=== PATIENT | male | born 1965 | race American Indian/Alaskan Native ===

== ENCOUNTER 2016-11-26 12:57 | Emergency (ER) | payer OTHER ==
[2016-11-26] MEDS ORDERED: ZOFRAN ONE (12:58)
[2016-11-26] MEDS ORDERED: KEPPRA 1,000 MG/NS 0.75% 100ML 1,000 MG/100 ML BAG IV ONE ×2 (12:58→13:17)
[2016-11-26] MEDS ORDERED: ZOFRAN IV ONE (13:17)
[2016-11-26 14:02] LABS: Basophils % (Auto) 0.3 % (0.0-1.8); Eosinophils % (Auto) 1.3 % (0.0-4.3); Hemoglobin 14.4 gm/dl (11.8-15.2); Mean Corpuscular HGB Conc 31 % (32-34); Mean Corpuscular Hemoglobin 28 pg (28-32); Mean Corpuscular Volume 88 fl (84-94); Platelet Count 187 K/mm3 (140-440); Red Blood Count 5.25 M/mm3 (3.65-5.03); Red Cell Distribution Width 13.7 % (13.2-15.2); White Blood Count 8.3 K/mm3 (4.5-11.0)
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
[2016-11-26 14:14] LABS: Creatine Kinase MB 5.7 ng/mL (0.0-4.0)
[2016-11-26 14:16] LABS: Alanine Aminotransferase 17 units/L (7-56); Albumin/Globulin Ratio 1.2 %; Alkaline Phosphatase 55 units/L (35-129); Anion Gap 25 mmol/L; BUN/Creatinine Ratio 11.53; Blood Urea Nitrogen 15 mg/dL (9-20); Calcium 9.4 mg/dL (8.4-10.2); Carbon Dioxide 17 mmol/L (22-30); Chloride 103.5 mmol/L (98-107); Creatine Kinase 725 units/L (55-170); Glucose 186 mg/dL (75-100); Potassium 4.6 mmol/L (3.6-5.0); Sodium 141 mmol/L (137-145); Total Protein 7.4 g/dL (6.3-8.2)
[2016-11-26 14:18] LABS: Bilirubin,Direct < 0.2 mg/dL (0-0.2)
[2016-11-26 15:36] LABS: Urine Drugs of Abuse Note Disclamer
[2016-11-26 18:41] VITALS: BP 130/87
== END 2016-11-26 18:42 | disposition home or self-care (01) ==
LOC: ED 12:57
DX: G40.909 Epilepsy, unspecified, not intractable, without status epilepticus (principal); F19.10 Other psychoactive substance abuse, uncomplicated; I10 Essential (primary) hypertension; F17.200 Nicotine dependence, unspecified, uncomplicated; F12.10 Cannabis abuse, uncomplicated; R73.9 Hyperglycemia, unspecified
CPT/HCPCS: 36415; 80048; 80074; 80307; 82550; 82553; 83735; 85025; 96365; 96375; 99284; J1953; J2405

== ENCOUNTER 2017-01-03 07:27 | Emergency (ER) | payer SELFPAY ==
[2017-01-03] MEDS ORDERED: KEPPRA 1,000 MG/NS 0.75% 100ML 1,000 MG/100 ML BAG IV ONE (08:44)
[2017-01-03 09:00] LABS: Basophils % (Auto) 0.5 % (0.0-1.8); Eosinophils % (Auto) 1.3 % (0.0-4.3); Hematocrit 41.2 % (35.5-45.6); Hemoglobin 13.4 gm/dl (11.8-15.2); Mean Corpuscular HGB Conc 33 % (32-34); Mean Corpuscular Hemoglobin 28 pg (28-32); Mean Corpuscular Volume 85 fl (84-94); Platelet Count 170 K/mm3 (140-440); Red Blood Count 4.84 M/mm3 (3.65-5.03); Red Cell Distribution Width 13.6 % (13.2-15.2); White Blood Count 6.6 K/mm3 (4.5-11.0)
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
[2017-01-03 09:32] LABS: Alanine Aminotransferase 21 units/L (7-56); Albumin 3.7 g/dL (3.9-5); Albumin/Globulin Ratio 1.3 %; Alkaline Phosphatase 52 units/L (35-129); Anion Gap 14 mmol/L; BUN/Creatinine Ratio 14.16; Blood Urea Nitrogen 17 mg/dL (9-20); Calcium 8.8 mg/dL (8.4-10.2); Carbon Dioxide 26 mmol/L (22-30); Chloride 109.4 mmol/L (98-107); Creatine Kinase 759 units/L (55-170); Glucose 103 mg/dL (75-100); Potassium 4.2 mmol/L (3.6-5.0); Sodium 145 mmol/L (137-145); Total Protein 6.6 g/dL (6.3-8.2)
[2017-01-03 10:31] VITALS: BP 155/89
== END 2017-01-03 11:46 | disposition home or self-care (01) ==
LOC: ED 07:27
DX: R56.9 Unspecified convulsions (principal); I10 Essential (primary) hypertension; F17.200 Nicotine dependence, unspecified, uncomplicated; F12.10 Cannabis abuse, uncomplicated
CPT/HCPCS: 36415; 80053; 82550; 84443; 85025; 93005; 93010; 96374; 99284; J1953